=== PATIENT | female | born 1960 | race Caucasian/White ===

== ENCOUNTER 2018-06-27 15:31 | Emergency (ER) | payer OTHER ==
[~2018-06-27] VITALS: Ht 167.6 cm; Wt 82.6 kg
[2018-06-27] MEDS ORDERED: WELLBUTRIN 75 M75 M1 PO (15:44)
[2018-06-27] MEDS ORDERED: LIPITOR40 MG PO (15:44)
[2018-06-27] MEDS ORDERED: CELEXA10 MG PO (15:44)
[2018-06-27] MEDS ORDERED: KEFLEX500 M1 PO (15:59)
[2018-06-27 16:06] VITALS: BP 152/77
== END 2018-06-27 16:06 | disposition home or self-care (01) ==
LOC: M.ERS 15:31
DX: S30.850A Superficial foreign body of lower back and pelvis, initial encounter (principal); E78.5 Hyperlipidemia, unspecified; Z90.710 Acquired absence of both cervix and uterus; X58.XXXA Exposure to other specified factors, initial encounter; Y93.89 Activity, other specified; Y92.89 Other specified places as the place of occurrence of the external cause; Y99.8 Other external cause status

== ENCOUNTER → 2019-08-27 | Outpatient (CLI) | payer OTHER ==
[~2019-08-27] MED LIST: CELEXA10 MG PO; KEFLEX500 M1 PO; LIPITOR40 MG PO; WELLBUTRIN 75 M75 M1 PO
== END ==
LOC: M.RAD 14:16
DX: Z12.31 Encounter for screening mammogram for malignant neoplasm of breast (principal)

== ENCOUNTER → 2021-07-23 | Outpatient (CLI) | payer OTHER | LOC: M.RAD 13:55 | PROVIDERS: ATTEND Family Medicine | DX: Z12.31 Encounter for screening mammogram for malignant neoplasm of breast (principal) ==